=== PATIENT | male | born 1985 | race Caucasian/White ===

== ENCOUNTER 2023-08-19 13:25 | Emergency (ER) | payer MEDICAID ==
[~2023-08-19] VITALS: Ht 182.9 cm; Wt 77.1 kg
[2023-08-19] MEDS ORDERED: LEVE500T9 PO (13:57)
[2023-08-19] MEDS ORDERED: CITA20TA16 PO (13:57)
[2023-08-19] MEDS ORDERED: PRAM2.252 PO (13:57)
[2023-08-19 14:58] VITALS: BP 122/80; TEMP 98; O2SAT 99
== END 2023-08-19 14:59 | disposition home or self-care (01) ==
LOC: ER 13:25
DX: R17 Unspecified jaundice (principal); Z88.8 Allergy status to other drugs, medicaments and biological substances; Z79.899 Other long term (current) drug therapy
CPT/HCPCS: A4606; A4663